=== PATIENT | female | born 1985 | race African-American/Black ===

== ENCOUNTER 2019-03-19 09:53 | Outpatient (RCR) | payer MEDICAID ==
[2019-03-19] VITALS (12 sets, daily range): BP systolic 117–135; BP diastolic 50–91; PULSE 84–90; TEMP 89.1–98.3
[~2019-03-19] VITALS: Ht 170.2 cm; Wt 115.9 kg
--- NOTE | 2019-03-19 11:35 | NUR ---
Per report of blood bank,Merlyn lester will get irradiated.per Merlyn she called Dr Blakely for order change.
[2019-03-19] MEDS ORDERED: TYLENOL 325MG325 MG PO (11:53)
[2019-03-19] MEDS ORDERED: ADVIL200 MG PO (11:54)
== END 2019-03-19 16:26 | disposition home or self-care (01) ==
LOC: EUO 09:53
DX: D50.0 Iron deficiency anemia secondary to blood loss (chronic) (principal)
CPT/HCPCS: J7050; P9040